=== PATIENT | female | born 1985 ===

== ENCOUNTER 2019-11-02 09:49 | Day surgery (SDC) | payer OTHER ==
[~2019-11-02] VITALS: Ht 160 cm; Wt 97.5 kg
--- NOTE | 2019-11-02 10:31 | NUR ---
11/02/19 1031 Denise Griffin 1 IV MISS IN RH BY [place] VALVE 1 GOOD IV IN RW BA PT TOW
== END 2019-11-02 11:29 | disposition home or self-care (01) ==
LOC: ORSCSDS 09:49
PROVIDERS: Student in an Organized Health Care Education/Training Program
PROC: 0DB58ZX Excision of Esophagus, Via Natural or Artificial Opening Endoscopic, Diagnostic (ICD-10-PCS; principal; 2019-11-02 11:00)
DX: R13.10 Dysphagia, unspecified (principal); K20.9 Esophagitis, unspecified; Z87.891 Personal history of nicotine dependence
CPT/HCPCS: 84703; 88305; J2250; J2704; J7120